=== PATIENT | female | born 1990 | race Caucasian/White ===

== ENCOUNTER 2016-12-15 05:00 | Inpatient (IN) | payer OTHER ==
[~2016-12-15] VITALS: Ht 165.1 cm; Wt 77.1 kg
[2016-12-15] VITALS (7 sets, daily range): BP systolic 99–119; BP diastolic 53–71
[~2016-12-15 05:00] MED LIST: CAMILA0.35 MG PO; CHILDREN'S100 MG/51 PO; COLACE100 MG PO; Children's Advil Sus PO; Colace PO; ENDOCET 5-3251 EACH PO; FERROUS SULFAT325 MG PO; Feosol PO; NOHOMEMEDS; PRENATAL TABLE1 EAC3 PO; Percocet 5/325,Endoc PO; ZOFRAN4 MG PO
[2016-12-15 06:08] LABS: EOSINOPHIL (%) 0.8 % (0-5); EOSINOPHIL COUNT 0.1 K/uL (0-0.3); HEMATOCRIT 29.9 % (36.0-46.0); IMMATURE GRANULOCYTE (%) 1.2 % (0.0-0.7); IMMATURE GRANULOCYTE COUNT 0.1 K/uL; INSTRUMENT ABS NEUTROPHIL CT 4.8 K/uL; LYMPHOCYTE COUNT 2.1 K/uL (1.0-2.8); MCH 29.8 PG (29.0-34.0); MCHC 32.4 G/DL (30.0-36.0); MEAN PLAT.VOLUME 9.9 uM^3 (9.5-12.4); MONOCYTE (%) 7.2 % (3-12); MONOCYTE COUNT 0.6 K/uL (0-0.8); NEUTROPHIL (%) 62.8 % (45-76); NEUTROPHIL COUNT 4.8 K/uL (1.8-6.4); PLATELET COUNT 252 K/uL (156-360); RBC DIS.WIDTH-CV 12.7 % (11.8-14.6); RBC DIS.WIDTH-SD 42.1 % (39-53); RED BLOOD COUNT 3.25 M/uL (3.80-5.20); WHITE BLOOD COUNT 7.7 K/uL (4.1-10.2)
[2016-12-15 08:28] LABS: METH RESISTANT S AUREUS PCR NEGATIVE (NEGATIVE)
[2016-12-15 08:31] LABS: PROBE CHECK PASS; SPECIMEN PROCESSING CONTROL PASS
[2016-12-16 07:22] VITALS: BP 105/59
[2016-12-16 07:30] LABS: EOSINOPHIL (%) 0.3 % (0-5); HEMATOCRIT 29.2 % (36.0-46.0); IMMATURE GRANULOCYTE (%) 0.9 % (0.0-0.7); IMMATURE GRANULOCYTE COUNT 0.1 K/uL; INSTRUMENT ABS NEUTROPHIL CT 8.1 K/uL; LYMPHOCYTE COUNT 2.1 K/uL (1.0-2.8); MCH 29.5 PG (29.0-34.0); MCHC 31.5 G/DL (30.0-36.0); MCV 93.6 FL (83-99); MEAN PLAT.VOLUME 10.2 uM^3 (9.5-12.4); MONOCYTE (%) 7.8 % (3-12); MONOCYTE COUNT 0.9 K/uL (0-0.8); NEUTROPHIL (%) 72.6 % (45-76); NEUTROPHIL COUNT 8.1 K/uL (1.8-6.4); PLATELET COUNT 223 K/uL (156-360); RBC DIS.WIDTH-SD 44.1 % (39-53); RED BLOOD COUNT 3.12 M/uL (3.80-5.20); WHITE BLOOD COUNT 11.2 K/uL (4.1-10.2)
[2016-12-16 10:55] VITALS: BP 110/64
[2016-12-16 16:18] VITALS: BP 112/68
[2016-12-16 18:57] VITALS: BP 124/57
[2016-12-16 23:28] VITALS: BP 117/59
[2016-12-17 09:20] VITALS: BP 120/64
[2016-12-17 15:19] VITALS: BP 114/67
[2016-12-18] MEDS ORDERED: FERROUS SULFAT325 MG PO (09:30)
[2016-12-18] MEDS ORDERED: ENDOCET 5-3251 EACH PO (09:30)
[2016-12-18] MEDS ORDERED: DOCUSATE SODIU100 MG PO (09:30)
[2016-12-18] MEDS ORDERED: ASCORBIC ACID500 M3 PO (09:30)
[2016-12-18] MEDS ORDERED: IBUPROFEN800 MG PO (09:30)
== END 2016-12-18 14:11 | disposition home or self-care (01) | DRG 765 ==
LOC: 2WEST 05:00 → 2SOUTH 09:16 → 2WEST 12-18 14:11
PROVIDERS: Obstetrics & Gynecology
DX: O34.211 Maternal care for low transverse scar from previous cesarean delivery (principal); O69.81X0 Labor and delivery complicated by cord around neck, without compression, not applicable or unspecified; O99.02 Anemia complicating childbirth; D62 Acute posthemorrhagic anemia; D50.9 Iron deficiency anemia, unspecified; O99.89 Other specified diseases and conditions complicating pregnancy, childbirth and the puerperium; H53.8 Other visual disturbances; Z37.0 Single live birth; Z3A.39 39 weeks gestation of pregnancy; Z30.2 Encounter for sterilization
CPT/HCPCS: 85025; 86850; 86900; 86901; 87641; 88302; 90686; J0690; J1100; J2274; J2405; J3010; J7120